=== PATIENT | female | born 1970 | race African-American/Black ===

== ENCOUNTER 2018-01-21 03:00 | Emergency (ER) | payer OTHER ==
[~2018-01-21] VITALS: Ht 177.8 cm; Wt 106.6 kg
[~2018-01-21 03:00] MED LIST: DICY20TA3 PO; ONDA4TAB12 PO
--- NOTE | 2018-01-21 03:03 | ED.ADGEN ---
Past History Past Medical History: Anemia, Constipation, Depression, Gallstones Past Surgical History: Other Smoking: Non-smoker Alcohol Use: Rarely Drug Use: None Adult General Chief Complaint Chief Complaint "... I ve got really bad abd pain... right up here..."',, Nausea..."... HPI HPI Patient is a 47 year old female who presents with above hx of severe abd. pain, nausea. Patient localizes pain in epigastric area. Nothing taken at home until relieve the discomfort. Patient denies any tarry or dark stools. Patient does have a history of H. pylori diagnosed on EGD which was treated with antibiotics approximate year ago. Patient denies any travel or specific ill contacts. Patient denies any intake bad food. Patient did have a sausage egg and cheese sandwich prior on set of nausea and pain. Pt. denies any previous history of gallbladder disease with family members and she has had a dx.of gallstones. Patient has had periodic bladder complaints and has had a bladder lift surgery. Patient did not get a flu vaccination this year because she stated one time she got a flu vaccination and then got sick anyway with the flu. Review of Systems Review of Systems Constitutional: Denies fever or chills [] Eyes: Denies change in visual acuity, redness, or eye pain [] HENT: Denies nasal congestion or sore throat [] Respiratory: Denies cough or shortness of breath [] Cardiovascular: No additional information not addressed in HPI [] GI: Complaints of abdominal pain, nausea. : Denies dysuria or hematuria [] Musculoskeletal: Denies back pain or joint pain [] Integument: Denies rash or skin lesions [] Neurologic: Denies headache, focal weakness or sensory changes [] Endocrine: Denies polyuria or polydipsia [] All other systems were reviewed and found to be within normal limits, except as documented in this note. Family History Family History Noncontributory to presentation Current Medications Current Medications Current Medications Medications (Trade) Dose Ordered Sig/Arabella Start Time Stop Time Status Last Admin Dose Admin Famotidine (Pepcid Vial) 20 mg 1X ONCE 01/21/18 03:45 01/21/18 03:46 DC 01/21/18 03:47 20 MG Info (Do NOT chart on this entry -- for MONITORING) 1 each PRN DAILY PRN 01/21/18 04:45 2/23/18 06:42 DC Iohexol (Omnipaque 240 Mg/ml) 50 ml 1X ONCE 01/21/18 04:45 01/21/18 04:46 DC 01/21/18 05:12 50 ML Iohexol (Omnipaque 300 Mg/ml) 75 ml 1X ONCE 01/21/18 04:45 01/21/18 04:46 DC 01/21/18 05:12 75 ML Lactated Ringer's 1,000 ml @ 1,000 mls/hr Q1H 01/21/18 03:45 01/21/18 04:44 DC 01/21/18 03:47 1,000 MLS/HR Magnesium Hydroxide (Milk Of Magnesia) 2,400 mg 1X ONCE 01/21/18 04:45 01/21/18 04:46 DC 01/21/18 05:50 2,400 MG Morphine Sulfate (Morphine 10mg Syringe) 10 mg 1X ONCE 01/21/18 03:45 01/21/18 03:46 DC 01/21/18 03:48 10 MG Ondansetron HCl (Zofran) 8 mg 1X ONCE 01/21/18 04:45 01/21/18 04:46 DC Potassium Chloride (KCl Oral Soln) 40 meq 1X ONCE 01/21/18 04:45 01/21/18 04:46 DC 01/21/18 05:50 40 MEQ See nursing for home medications Allergies Allergies Allergies Coded Allergies Type Severity Reaction Last Updated Verified No Known Drug Allergies 01/21/18 No Physical Exam Physical Exam Constitutional: Well developed, well nourished, moderately acute distress, non- toxic appearance. [] HENT: Normocephalic, atraumatic, bilateral external ears normal, oropharynx moist, no oral exudates, nose normal. [] Eyes: PERRLA, EOMI, conjunctiva normal, no discharge. [] Neck: Normal range of motion, no tenderness, supple, no stridor. [] Cardiovascular: Bradycardia Heart rate regular rhythm, no murmur [] Lungs & Thorax: Bilateral breath sounds equal apex with few scattered wheezes auscultation [] Abdomen: Bowel sounds are proactive,, soft, epigastric tenderness, no masses, no pulsatile masses. Old surgery scars. Declines rectal at this time. Skin: Warm, dry, no erythema, no rash. [] Back: No tenderness, no CVA tenderness. [] Extremities: No tenderness, no cyanosis, no clubbing, ROM intact, no edema. [] Neurologic: Alert and oriented X 3, normal motor function, normal sensory function, no focal deficits noted. [] Psychologic: Affect anxious, judgement normal, mood normal. [] Current Patient Data Vital Signs Vital Signs Date Time Temp Pulse Resp B/P (MAP) Pulse Ox O2 Delivery O2 Flow Rate FiO2 01/21/18 05:30 60 20 131/82 (98) 98 Room Air 01/21/18 03:01 97.6 Lab Results Laboratory Tests Test 01/21/18 03:10 01/21/18 03:30 01/21/18 03:34 Urine Collection Type Unknown Urine Color Yellow Urine Clarity Clear Urine pH 5.0 Urine Specific [place] >=1.030 Urine Protein 30 mg/dl (NEG-TRACE) Urine Glucose (UA) Neg mg/dL (NEG) Urine Ketones (Stick) Neg mg/dL (NEG) Urine Blood Mod (NEG) Urine Nitrite Neg (NEG) Urine Bilirubin Neg (NEG) Urine Urobilinogen Dipstick 0.2 mg/dL (0.2 mg/dL) Urine Leukocyte Esterase Neg (NEG) Urine RBC Occ /HPF (0-2) Urine WBC Occ /HPF (0-4) Urine Squamous Epithelial Cells Few /LPF Urine Transitional Epithelial Cells Occ /LPF Urine Bacteria Few /HPF (0-FEW) Urine Mucus Slight /LPF Urine Opiates Screen Neg (NEG) Urine Methadone Screen Neg (NEG) Urine Barbiturates Neg (NEG) Urine Phencyclidine Screen Neg (NEG) Urine Amphetamine/Methamphetamine Neg (NEG) Urine Benzodiazepines Screen Neg (NEG) Urine Cocaine Screen Neg (NEG) Urine Cannabinoids Screen Neg (NEG) Urine Ethyl Alcohol Neg (NEG) Influenza Type A (Rapid) Negative (NEGATIVE) Influenza Type B (Rapid) Negative (NEGATIVE) White Blood Count 10.3 x10^3/uL (4.0-11.0) Red Blood Count 4.62 x10^6/uL (3.50-5.40) Hemoglobin 11.8 g/dL (12.0-15.5) L Hematocrit 36.0 % (36.0-47.0) Mean Corpuscular Volume 78 fL (79-100) L Mean Corpuscular Hemoglobin 26 pg (25-35) Mean Corpuscular Hemoglobin Concent 33 g/dL (31-37) Red Cell Distribution Width 17.6 % (11.5-14.5) H Platelet Count 296 x10^3/uL (140-400) Neutrophils (%) (Auto) 78 % (31-73) H Lymphocytes (%) (Auto) 16 % (24-48) L Monocytes (%) (Auto) 5 % (0-9) Eosinophils (%) (Auto) 0 % (0-3) Basophils (%) (Auto) 1 % (0-3) Neutrophils # (Auto) 8.0 x10^3uL (1.8-7.7) H Lymphocytes # (Auto) 1.6 x10^3/uL (1.0-4.8) Monocytes # (Auto) 0.5 x10^3/uL (0.0-1.1) Eosinophils # (Auto) 0.0 x10^3/uL (0.0-0.7) Basophils # (Auto) 0.1 x10^3/uL (0.0-0.2) Reticulocyte Count (auto) 11.5 % (0.5-2.5) H Prothrombin Time 10.3 SEC (9.4-11.4) Prothrombin Time INR 1.0 (0.9-1.1) PTT 23 SEC (23-33) Maternal Serum HCG Beta Subunit < 1 mIU/mL (0-6) Sodium Level 140 mmol/L (136-145) Potassium Level 3.3 mmol/L (3.5-5.1) L Chloride Level 101 mmol/L (98-107) Carbon Dioxide Level 30 mmol/L (21-32) Anion Gap 9 (6-14) Blood Urea Nitrogen 21 mg/dL (7-20) H Creatinine 1.1 mg/dL (0.6-1.0) H Estimated GFR (Cockcroft-Gault) 65.0 Glucose Level 130 mg/dL (70-99) H Calcium Level 8.7 mg/dL (8.5-10.1) Total Bilirubin 0.2 mg/dL (0.2-1.0) Direct Bilirubin < 0.1 mg/dL (0.0-0.2) Aspartate Amino Transferase (AST) 26 U/L (15-37) Alanine Aminotransferase (ALT) 27 U/L (14-59) Alkaline Phosphatase 57 U/L (46-116) Troponin I Quantitative < 0.017 ng/mL (0-0.055) Total Protein 7.8 g/dL (6.4-8.2) Albumin 3.2 g/dL (3.4-5.0) L Amylase Level 103 U/L (25-115) POC Urine HCG, Qualitative hcg negative (Negative) EKG EKG My interpretation of EKG shows[shows a sinus rhythm at 60 bpm. Slightly prolonged VA interval and nonspecific anterior lateral changes, but no findings acute STEMI of contralateral changes. Radiology/Procedures Radiology/Procedures My interpretation of acute abdomen film shows[] no free air under diaphragm. No acute cardio pulmonary findings. Does have multiple air-fluid levels suggestive of possible early ileus. ED findings no acute surgical processes. See formal report when available Course & Med Decision Making Course & Med Decision Making Pertinent Labs and Imaging studies reviewed. (See chart for details) remain on a clear fluid diet. Patient take zantac twice a day. Patient follow-up primary care. Patient follow-up with GI. Recommend EGD. Return if any concerns. [] Final Impression Final Impression 1. Abd. Pain[]-epigastric 2. Anemia 3. Hypokalemia 4. Elevated Creat/BUN 5. Elevated Glucose 6. Possible early Ileus Problems: Dragon Disclaimer Dragon Disclaimer This electronic medical record was generated, in whole or in part, using a voice recognition dictation system. HERIBERTO ALANIZ MD Jan 21, 2018 03:03
[2018-01-21] MEDS ORDERED: ONDANSETRON PF 4 MG/2 ML VIAL. IV ONE ×2 (03:45→04:45)
[2018-01-21] MEDS ORDERED: FAMOTIDINE 20 MG/2 ML VIAL IVP ONE (03:45)
[2018-01-21] MEDS ORDERED: IV RINGERS SOLUTION,LACTATED 1,000 ML IV SCH (03:45)
[2018-01-21] MEDS ORDERED: MORPHINE SULFATE 10 MG/ML SYRINGE. SQ ONE (03:45)
[2018-01-21 04:02] LABS: BASO # 0.1 x10^3/uL (0.0-0.2); BASO % 1 % (0-3); EOS % 0 % (0-3); HEMOGLOBIN 11.8 g/dL (12.0-15.5); LYMPH # 1.6 x10^3/uL (1.0-4.8); LYMPH % 16 % (24-48); MEAN CORPUSCULAR HEMOGLOBIN 26 pg (25-35); MEAN CORPUSCULAR HGB CONC 33 g/dL (31-37); MEAN CORPUSCULAR VOLUME 78 fL (79-100); MONO # 0.5 x10^3/uL (0.0-1.1); MONO % 5 % (0-9); NEUT % 78 % (31-73); PLATELET COUNT 296 x10^3/uL (140-400); RED BLOOD COUNT 4.62 x10^6/uL (3.50-5.40); RED CELL DISTRIBUTION WIDTH 17.6 % (11.5-14.5); WHITE BLOOD COUNT 10.3 x10^3/uL (4.0-11.0)
[2018-01-21 04:03] LABS: AMPHETAMINE/METHAMPHETAMINE NEG (NEG); BARBITURATES NEG (NEG); BENZODIAZEPINES NEG (NEG); CANNABINOIDS NEG (NEG); COCAINE NEG (NEG); METHADONE NEG (NEG); OPIATES NEG (NEG); PHENCYCLIDINE NEG (NEG)
[2018-01-21 04:12] LABS: ALBUMIN 3.2 g/dL (3.4-5.0); ALK PHOS 57 U/L (46-116); ALT (SGPT) 27 U/L (14-59); ANION GAP 9 (6-14); AST (SGOT) 26 U/L (15-37); BLOOD UREA NITROGEN 21 mg/dL (7-20); CALCIUM 8.7 mg/dL (8.5-10.1); CARBON DIOXIDE 30 mmol/L (21-32); CHLORIDE 101 mmol/L (98-107); CREATININE 1.1 mg/dL (0.6-1.0); GLUCOSE 130 mg/dL (70-99); POTASSIUM 3.3 mmol/L (3.5-5.1); SODIUM 140 mmol/L (136-145); TOTAL BILIRUBIN 0.2 mg/dL (0.2-1.0); TOTAL PROTEIN 7.8 g/dL (6.4-8.2)
[2018-01-21 04:16] LABS: DIRECT BILIRUBIN < 0.1 mg/dL (0.0-0.2)
[2018-01-21 04:20] LABS: BACTERIA,URINE FEW /HPF (0-FEW); BILIRUBIN,URINE NEG (NEG); CLARITY,URINE CLEAR; COLOR,URINE YELLOW; GLUCOSE,URINE NEG (NEG); NITRITE,URINE NEG (NEG); RBC,URINE OCC /HPF (0-2); SQUAMOUS EPITHELIAL CELL,UR FEW /LPF; UROBILINOGEN,URINE 0.2 mg/dL (0.2 mg/dL); WBC,URINE OCC /HPF (0-4)
[2018-01-21 04:30] LABS: INFLUENZA A PATIENT NEGATIVE (NEGATIVE); INFLUENZA B PATIENT NEGATIVE (NEGATIVE)
--- NOTE | 2018-01-21 04:37 | EKG ---
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
[2018-01-21] MEDS ORDERED: CONTRAST GIVEN MC PRN (04:45)
[2018-01-21] MEDS ORDERED: IOHEXOL 300 MG/ML 75 ML VIAL. IV ONE (04:45)
[2018-01-21] MEDS ORDERED: POTASSIUM CHLORIDE 20 MEQ/15 ML ORAL LIQUID. PO ONE (04:45)
[2018-01-21] MEDS ORDERED: MAGNESIUM HYDROXIDE 2,400 MG/30 ML ORAL.SUSP. PO ONE (04:45)
[2018-01-21] MEDS ORDERED: IOHEXOL 240 MG/ML 50ML VIAL. PO ONE (04:45)
[2018-01-21 05:30] VITALS: BP 131/82
--- NOTE | 2018-01-21 05:49 | RAD ---
CT abdomen and pelvis with contrast 01/21/2018 CLINICAL INDICATION: Epigastric pain, nausea and vomiting. COMPARISON: None. TECHNIQUE: Multiple CT images of the abdomen and pelvis were obtained following the intravenous and ministration of 75 mL Omnipaque 300 and 30 mL Omnipaque 240 oral contrast. *One or more of the following individualized dose reduction techniques were utilized for this examination: 1. Automated exposure control. 2. Adjustment of the mA and/or kV according to patient size. 3. Use of iterative reconstruction technique. FINDINGS: Heart size is normal. Visualized lung bases are clear. There is a 1.0 cm hypodensity in hepatic segment 2 series 2/image 18. Gallbladder unremarkable. Spleen, adrenal glands, and pancreas are unremarkable. There are 2 subcentimeter right renal hypodensities which are too small to definitively characterize. Nonobstructive 0.2 cm calculus in the inferior pole the right kidney. Left kidney is unremarkable. Abdominal aorta is normal in caliber. No retroperitoneal or mesenteric lymphadenopathy. Small and large bowel loops are normal in caliber without obstruction. Appendix is not definitively identified. Mildly distended unopacified urinary bladder, uterus, and adnexa are unremarkable. No iliac or inguinal lymphadenopathy. No pelvic free fluid. There are no destructive osseous lesions. IMPRESSION: 1. No CT evidence of acute abdominal or pelvic process. 2. Left hepatic 1.0 cm hypodensity, indeterminate. Follow-up MRI abdomen is recommended for further characterization. 3. 0.2 cm right renal nonobstructive calculus. Electronically signed by: Adrián Acevedo MD (01/21/2018 5:46 AM) [id number]
[2018-01-21] MEDS ORDERED: ONDA8TAB12 PO (06:13)
[2018-01-21] MEDS ORDERED: FAMO-63 PO (06:13)
--- NOTE | 2018-01-21 07:25 | RAD ---
Acute abdomen series with chest, 3 views, 01/21/2018: History: Epigastric pain, nausea and vomiting There are scattered air-fluid levels in the GI tract. The bowel loops are not significantly dilated. No free air seen in the abdomen. There is no evidence organomegaly. Lower pelvic calcifications are compatible with phleboliths. The heart size is normal. The lungs are clear. There is no evidence of pleural fluid. IMPRESSION: Scattered air-fluid levels in the GI tract suggesting a nonspecific ileus..
== END 2018-01-21 06:25 | disposition home or self-care (01) ==
LOC: ER 03:00
DX: R10.13 Epigastric pain (principal); D64.9 Anemia, unspecified; E87.6 Hypokalemia; R73.02 Impaired glucose tolerance (oral); R79.89 Other specified abnormal findings of blood chemistry
CPT/HCPCS: 36415; 74022; 74177; 80048; 80076; 80307; 81001; 81025; 82150; 84484; 84702; 85025; 85045; 85610; 85730; 87804; 93005; 96361; 96372; 96374; 96375; 99285; J2270; J2405; J7120; Q9966; Q9967; S0028; G0479

== ENCOUNTER → 2018-03-08 | Outpatient (CLI) | payer OTHER ==
[~2018-03-08] MED LIST changes: +FAMO-63 PO; +ONDA8TAB12 PO
--- NOTE | 2018-03-08 09:35 | RAD ---
Right upper quadrant abdominal ultrasound, 03/08/2018: History: Pain The gallbladder is within normal limits in size. There is no sonographic evidence of cholelithiasis. The gallbladder wu are not thickened. The common hepatic duct is of normal caliber. There is a 1.5 cm lesion in the left lobe of the liver which demonstrates increased echogenicity. This appearance is most commonly due to a hemangioma. No other hepatic abnormality is seen. The visualized portions of the pancreatic body are unremarkable. Other portions of the pancreas were obscured by overlying bowel. There is a tiny echogenic focus in the right kidney compatible with a nonobstructing calculus. The right kidney is otherwise unremarkable. IMPRESSION: 1. No significant gallbladder abnormality is detected. 2. Tiny nonobstructing right intrarenal calculus. 3. Small echogenic lesion in the left lobe of the liver, which is most likely a hemangioma. Occasionally, other hepatic pathologies can also be hyperechoic and therefore sonographic follow-up may be prudent to establish stability.
--- NOTE | 2018-03-08 12:44 | RAD ---
Radionuclide hepatobiliary scan, 03/08/2018: History: Right upper quadrant pain, nausea and vomiting Following IV injection of 5.5 mCi of technetium 99m Choletec there is prompt uptake of the radionuclide from the blood stream by the liver. Activity is present in the bile ducts and gallbladder at 20 minutes. Initial imaging at one-hour showed increasing activity in the gallbladder without extension into the small bowel. The gallbladder ejection portion of the study then performed utilizing Boost liquid supplement rather than Kinevac due to a national shortage of Kinevac. The gallbladder ejection fraction was calculated at 36%. Small bowel activity did develop on these delayed images. IMPRESSION: 1. No evidence of cystic duct or common bile duct obstruction. 2. The gallbladder ejection fraction is 36%.
== END | disposition home or self-care (01) ==
LOC: US 08:15
PROVIDERS: ATTEND Internal Medicine Gastroenterology
DX: R10.11 Right upper quadrant pain (principal); R11.2 Nausea with vomiting, unspecified
CPT/HCPCS: 76705; 78226; 96374; 96375; A9537

== ENCOUNTER 2018-08-12 03:46 | Emergency (ER) | payer OTHER ==
[~2018-08-12] VITALS: Ht 177.8 cm; Wt 108.0 kg
--- NOTE | 2018-08-12 03:50 | ED.ADGEN ---
Past History Past Medical History: Anemia, Constipation, Depression, Gallstones Past Surgical History: Other Smoking: Non-smoker Alcohol Use: None Drug Use: None Adult General Chief Complaint Chief Complaint ".. I ve been vomiting and diarrhea since eating kenyan the other night... " [facility] HPI Patient is a 27 year old female who presents with above hx and complaints nausea , vomiting and diarrhea. Patient denies any travel or specific ill contacts. Suspects that maybe the food poisoning from the [place] food. Patient has had 15 episodes of vomiting and 2 episodes of diarrhea today. Patient normally healthy. An follows at [facility]. Patient has had large amount of gas passage per rectum. No dark or tarry stools. Review of Systems Review of Systems Constitutional: Denies fever or chills [] Eyes: Denies change in visual acuity, redness, or eye pain [] HENT: Denies nasal congestion or sore throat [] Respiratory: Denies cough or shortness of breath [] Cardiovascular: No additional information not addressed in HPI [] GI: Complains of generalized abdominal pain, nausea, vomiting, and diarrhea [] : Denies dysuria or hematuria [] Musculoskeletal: Denies back pain or joint pain [] Integument: Denies rash or skin lesions [] Neurologic: Denies headache, focal weakness or sensory changes [] Endocrine: Denies polyuria or polydipsia [] All other systems were reviewed and found to be within normal limits, except as documented in this note. Family History Family History Noncontributory Current Medications Current Medications Current Medications Medications (Trade) Dose Ordered Sig/Arabella Start Time Stop Time Status Last Admin Dose Admin Famotidine (Pepcid Vial) 20 mg STK-MED ONCE 08/12/18 04:07 08/12/18 04:08 DC Ketorolac Tromethamine (Toradol 30mg Vial) 30 mg STK-MED ONCE 08/12/18 04:07 08/12/18 04:08 DC Lactated Ringer's 1,000 ml @ 1,000 mls/hr Q1H 08/12/18 04:30 08/12/18 05:28 DC 08/12/18 04:20 1,000 MLS/HR Ondansetron HCl (Zofran) 4 mg STK-MED ONCE 08/12/18 04:07 08/12/18 04:08 DC Allergies Allergies Allergies Coded Allergies Type Severity Reaction Last Updated Verified No Known Drug Allergies 01/21/18 No Physical Exam Physical Exam Constitutional: Well developed, well nourished, moderately acute distress, non- toxic appearance. [] HENT: Normocephalic, atraumatic, bilateral external ears normal, oropharynx moist, no oral exudates, nose normal. [] Eyes: PERRLA, EOMI, conjunctiva normal, no discharge. [] Neck: Normal range of motion, no tenderness, supple, no stridor. [] Cardiovascular:Heart rate regular rhythm, no murmur [] Lungs & Thorax: Bilateral breath sounds clear to auscultation [] Abdomen: Bowel sounds are hyperactive, soft, generalized tenderness, no masses, no pulsatile masses. [Old surgical scar] Skin: Warm, dry, no erythema, no rash. [] Back: No tenderness, no CVA tenderness. [] Extremities: No tenderness, no cyanosis, no clubbing, ROM intact, no edema. [] No psoas or obturator Neurologic: Alert and oriented X 3, normal motor function, normal sensory function, no focal deficits noted. [] Psychologic: Affect anxious, judgement normal, mood normal. [] Current Patient Data Vital Signs Vital Signs Date Time Temp Pulse Resp B/P (MAP) Pulse Ox O2 Delivery O2 Flow Rate FiO2 08/12/18 05:14 70 18 117/69 (85) 100 Room Air 08/12/18 03:55 98.1 Lab Results Laboratory Tests Test 08/12/18 04:14 08/12/18 04:50 White Blood Count 13.7 x10^3/uL (4.0-11.0) H Red Blood Count 4.49 x10^6/uL (3.50-5.40) Hemoglobin 12.1 g/dL (12.0-15.5) Hematocrit 36.9 % (36.0-47.0) Mean Corpuscular Volume 82 fL (79-100) Mean Corpuscular Hemoglobin 27 pg (25-35) Mean Corpuscular Hemoglobin Concent 33 g/dL (31-37) Red Cell Distribution Width 15.9 % (11.5-14.5) H Platelet Count 283 x10^3/uL (140-400) Neutrophils (%) (Auto) 87 % (31-73) H Lymphocytes (%) (Auto) 5 % (24-48) L Monocytes (%) (Auto) 8 % (0-9) Eosinophils (%) (Auto) 0 % (0-3) Basophils (%) (Auto) 0 % (0-3) Neutrophils # (Auto) 12.0 x10^3uL (1.8-7.7) H Lymphocytes # (Auto) 0.6 x10^3/uL (1.0-4.8) L Monocytes # (Auto) 1.0 x10^3/uL (0.0-1.1) Eosinophils # (Auto) 0.0 x10^3/uL (0.0-0.7) Basophils # (Auto) 0.0 x10^3/uL (0.0-0.2) Sodium Level 137 mmol/L (136-145) Potassium Level 3.9 mmol/L (3.5-5.1) Chloride Level 101 mmol/L (98-107) Carbon Dioxide Level 29 mmol/L (21-32) Anion Gap 7 (6-14) Blood Urea Nitrogen 20 mg/dL (7-20) Creatinine 1.0 mg/dL (0.6-1.0) Estimated GFR (Cockcroft-Gault) 72.5 Glucose Level 94 mg/dL (70-99) Calcium Level 8.6 mg/dL (8.5-10.1) Total Bilirubin 0.2 mg/dL (0.2-1.0) Direct Bilirubin 0.1 mg/dL (0.0-0.2) Aspartate Amino Transferase (AST) 20 U/L (15-37) Alanine Aminotransferase (ALT) 23 U/L (14-59) Alkaline Phosphatase 59 U/L (46-116) Total Protein 7.7 g/dL (6.4-8.2) Albumin 3.2 g/dL (3.4-5.0) L Lipase 132 U/L (73-393) Urine Collection Type Unknown Urine Color Yellow Urine Clarity Clear Urine pH 5.5 Urine Specific [place] 1.020 Urine Protein Neg (NEG-TRACE) Urine Glucose (UA) Neg mg/dL (NEG) Urine Ketones (Stick) Neg mg/dL (NEG) Urine Blood Neg (NEG) Urine Nitrite Neg (NEG) Urine Bilirubin Neg (NEG) Urine Urobilinogen Dipstick 0.2 mg/dL (0.2 mg/dL) Urine Leukocyte Esterase Neg (NEG) Urine RBC 0 /HPF (0-2) Urine WBC Occ /HPF (0-4) Urine Squamous Epithelial Cells Occ /LPF Urine Bacteria 0 /HPF (0-FEW) EKG EKG [] Radiology/Procedures Radiology/Procedures [] Course & Med Decision Making Course & Med Decision Making Pertinent Labs and Imaging studies reviewed. (See chart for details). Patient reports marked relief of symptoms at time of discharge. Patient remain on a clear fluid diet for the next couple days. No solid or milk products. Allow bowel rest. Push fluids. Take Zofran as needed for nausea and vomiting. Take Pepto-Bismol for diarrhea. Tylenol and ibuprofen for pain. Marked pain may take Vicoprofen. Follow-up primary care. Return if any concerns. [] Final Impression Final Impression 1. Nausea vomiting diarrhea-gastroenteritis[] Dragon Disclaimer Dragon Disclaimer This electronic medical record was generated, in whole or in part, using a voice recognition dictation system. HERIBERTO ALANIZ MD Aug 12, 2018 03:50
[2018-08-12] MEDS ORDERED: KETOROLAC 30 MG/ML VIAL. ONE (04:07)
[2018-08-12] MEDS ORDERED: FAMOTIDINE 20 MG/2 ML VIAL ONE (04:07)
[2018-08-12] MEDS ORDERED: ONDANSETRON PF 4 MG/2 ML VIAL. ONE (04:07)
[2018-08-12] MEDS ORDERED: IV RINGERS SOLUTION,LACTATED 1,000 ML IV SCH (04:30)
[2018-08-12] MEDS ORDERED: KETOROLAC 30 MG/ML VIAL. IV ONE (04:30)
[2018-08-12] MEDS ORDERED: FAMOTIDINE 20 MG/2 ML VIAL IVP ONE (04:30)
[2018-08-12] MEDS ORDERED: ONDANSETRON PF 4 MG/2 ML VIAL. IV ONE (04:30)
[2018-08-12 04:34] LABS: BASO % 0 % (0-3); EOS % 0 % (0-3); HEMATOCRIT 36.9 % (36.0-47.0); HEMOGLOBIN 12.1 g/dL (12.0-15.5); LYMPH # 0.6 x10^3/uL (1.0-4.8); LYMPH % 5 % (24-48); MEAN CORPUSCULAR HEMOGLOBIN 27 pg (25-35); MEAN CORPUSCULAR HGB CONC 33 g/dL (31-37); MEAN CORPUSCULAR VOLUME 82 fL (79-100); MONO % 8 % (0-9); NEUT % 87 % (31-73); PLATELET COUNT 283 x10^3/uL (140-400); RED BLOOD COUNT 4.49 x10^6/uL (3.50-5.40); RED CELL DISTRIBUTION WIDTH 15.9 % (11.5-14.5); WHITE BLOOD COUNT 13.7 x10^3/uL (4.0-11.0)
[2018-08-12] MEDS ORDERED: HYDR-79 PO (04:35)
[2018-08-12] MEDS ORDERED: ONDA8TAB12 PO (04:35)
[2018-08-12] MEDS ORDERED: BISM525O8 PO (04:35)
[2018-08-12 04:54] LABS: ALBUMIN 3.2 g/dL (3.4-5.0); CALCIUM 8.6 mg/dL (8.5-10.1); DIRECT BILIRUBIN 0.1 mg/dL (0.0-0.2); GFR 72.5; POTASSIUM 3.9 mmol/L (3.5-5.1); TOTAL BILIRUBIN 0.2 mg/dL (0.2-1.0); TOTAL PROTEIN 7.7 g/dL (6.4-8.2)
[2018-08-12 05:14] VITALS: BP 117/69
[2018-08-12 05:14] LABS: BACTERIA,URINE 0 /HPF (0-FEW); BILIRUBIN,URINE NEG (NEG); CLARITY,URINE CLEAR; COLOR,URINE YELLOW; GLUCOSE,URINE NEG (NEG); NITRITE,URINE NEG (NEG); RBC,URINE 0 /HPF (0-2); SQUAMOUS EPITHELIAL CELL,UR OCC /LPF; UROBILINOGEN,URINE 0.2 mg/dL (0.2 mg/dL); WBC,URINE OCC /HPF (0-4)
== END 2018-08-12 05:27 | disposition home or self-care (01) ==
LOC: ER 03:46
DX: K52.9 Noninfective gastroenteritis and colitis, unspecified (principal); Z86.2 Personal history of diseases of the blood and blood-forming organs and certain disorders involving the immune mechanism
CPT/HCPCS: 36415; 80048; 80076; 81001; 83690; 85025; 96361; 96374; 96375; 99284; J1885; J2405; J7120; S0028

== ENCOUNTER → 2019-04-28 | Outpatient (CLI) | payer BC ==
[~2019-04-28] MED LIST changes: +BISM525O8 PO; +HYDR-1179 PO
--- NOTE | 2019-05-08 10:44 | RAD ---
DATE: 04/28/2019 EXAM: MAMMO LISA SCREENING BILATERAL HISTORY: Routine screening COMPARISON: None available This study was interpreted with the benefit of Computerized Aided Detection (CAD). Breast Density: HETERO The breast parenchyma is heterogenously dense, which could reduce sensitivity of mammography. Breast parenchyma level C. FINDINGS: 2-D and 3-D tomosynthesis imaging was performed in CC and MLO projections. No mass or architectural distortion is evident. No suspicious microcalcifications are seen. IMPRESSION: There is no mammographic evidence of malignancy in either breast. BI-RADS CATEGORY: 2 BENIGN FINDING(S) RECOMMENDED FOLLOW-UP: 12M 12 MONTH FOLLOW-UP PQRS compliance statement: Patient information was entered into a reminder system with a target due date for the next mammogram. Mammography is a sensitive method for finding small breast cancers, but it does not detect them all and is not a substitute for careful clinical examination. A negative mammogram does not negate a clinically suspicious finding and should not result in delay in biopsying a clinically suspicious abnormality. "Our facility is accredited by the [employer] Mammography Program."
== END | disposition home or self-care (01) ==
LOC: MAMMO 10:26
PROVIDERS: ATTEND Physician Assistant Medical
DX: Z12.31 Encounter for screening mammogram for malignant neoplasm of breast (principal)
CPT/HCPCS: 77063; 77067